=== PATIENT | male | born 1980 | race Caucasian/White ===

== ENCOUNTER → 2017-02-16 | Outpatient (CLI) | payer OTHER ==
[~2017-02-16] MED LIST: NOMEDS *; PEN-VK500 MG PO
[2017-02-16 20:59] LABS: HEMOGLOBIN 12.4 g/dL (14.1-18.0)
[2017-02-16 21:00] LABS: LYMPH # 1.9 K/mm3 (0.7-4.5); LYMPH % 38.2 % (10-50)
[2017-02-16 23:27] LABS: BUN 13 mg/dL (7-18)
[2017-02-16 23:30] LABS: GFR (ESTIMATED) 86 ML/MIN (>60)
[2017-02-18 06:37] LABS: HBsAg Screen Negative (Negative); Hep A Ab, IgM Negative (Negative); Hep B Core Ab, IgM Negative (Negative); Hep C Virus Ab <0.1 (0.0-0.9)
== END ==
LOC: LAB 18:43
PROVIDERS: Emergency Medicine
DX: R53.83 Other fatigue (principal)

== ENCOUNTER → 2017-03-09 | Outpatient (CLI) | payer OTHER ==
[2017-03-09 20:27] LABS: AMPHETAMINES/METAMPHETAMINES NEGATIVE ng/mL (<1000)
== END ==
LOC: LAB 19:01
PROVIDERS: Emergency Medicine
DX: Z79.899 Other long term (current) drug therapy (principal)